=== PATIENT | female | born 1965 | race Caucasian/White ===

== ENCOUNTER 2017-10-15 17:21 | Emergency (ER) | payer OTHER ==
[~2017-10-15] VITALS: Ht 165.1 cm; Wt 108.9 kg
[~2017-10-15 17:21] MED LIST: ADAL40PEN; ADAL40PEN INJ; ALBU90OI INH; ALPR.25 PO; ALPR.5 PO; ALPR1 PO; AMOCLA875 PO; Adipex-P37.5 MG PO; Bentyl20 MG PO; CEPH500 PO; CLIN300 PO; CODBUTASA PO; CRUTCH3 USE; CYAN100 PO; CYCL10 PO; Coumadin7.5 MG PO; Cyclobenzaprine5 MG PO; DAYQUIL; DICY20 PO; DIPATR PO; DIPH50; DIPH50 PO; DOXY100 PO; ENOX30I SC; Flomax0.4 MG PO; HUMIRA10 MG/0.2 IM; HYDACE10B PO; HYDACE5 PO; HYDACE7.5 PO; HYDGUAL120 PO; HYDMOR2 PO; HYDR-86 PO; INSLIS75I SC; KETO10 PO; LORA1 PO; Lasix40 MG PO; MESA250ER; MESA250ER PO; META800 PO; METO100ER PO; METO50ER; METPRE4DP PO; METR500 PO; Methotrexate2.5 MG PO; NEBI10 PO; Nitrofurantoin50 MG PO; Norco 5-325 Ta1 EACH PO; OLAN7.5 PO; OLME20 PO; ONDA8ODT MM; OXYACE5T PO; PENVK500 PO; POTCHL20ER PO; PRED20 PO; PREDNISONE; PROC25S PR; PROM25; PROM25 PO; PROM25S PR; Percocet 5-3251 EACH PO; Phenergan25 MG PR; Prednisone20 MG PO; RANI150 PO; RXHYDACE PO; RXOXYACE PO; SERT100; SUMA25 PO; TOPI25 PO; TRAZ100; TRAZ100 PO; TRAZ150T57; TRAZ50 PO; WARF5; WARF5 PO; WARF7.5 PO; XARELTO10 MG PO; [UNRECOGNIZED DRUG - CODE] PO; [UNRECOGNIZED DRUG - OTHER]
[2017-10-15 18:03] LABS: BASOPHILS ABSOLUTE AUTO 0.02 K/mm3 (0.00-0.23); BASOPHILS PERCENT AUTO 0 % (0-2); EOSINOPHILS ABSOLUTE AUTO 0.11 K/mm3 (0.00-0.68); EOSINOPHILS PERCENT AUTO 1 % (0-6); Hematocrit 38.1 % (33.0-51.0); IMMATURE GRAN ABSOLUTE AUTO 0.05 K/mm3 (0.00-0.10); IMMATURE GRAN PERCENT AUTO 1 % (0-1); LYMPHOCYTES ABSOLUTE AUTO 2.43 K/mm3 (0.84-5.20); LYMPHOCYTES PERCENT AUTO 26 % (21-46); MONOCYTES ABSOLUTE AUTO 0.77 K/mm3 (0.16-1.47); MONOCYTES PERCENT AUTO 8 % (4-13); Mean Corpuscular HGB 30.1 pg (26.0-34.0); Mean Corpuscular HGB Conc 34.1 g/dL (31.5-36.5); Mean Corpuscular Volume 88 fL (80-100); Mean Platelet Volume 11.2 fL (9.1-12.4); NEUTROPHILS ABSOLUTE AUTO 5.93 K/mm3 (1.96-9.15); NEUTROPHILS PERCENT AUTO 64 % (41-73); Platelet Count 182 K/mm3 (150-400); RDW Coefficient Variation 13.2 % (11.7-14.2); RDW Standard Deviation 42.5 fL (35.1-46.3); Red Blood Cell Count 4.32 M/mm3 (3.80-5.20); White Blood Cell Count 9.31 K/mm3 (4.00-11.30)
[2017-10-15 18:22] LABS: Alanine Aminotransfer (ALT/SGP 59 U/L (12-78); Albumin, Blood 3.5 g/dL (3.4-5.0); Albumin/Globulin Ratio 0.9 (0.8-1.8); Alk Phos 66 U/L (50-136); Anion Gap 10 mmol/L (6-16); Aspartate Aminotrans (AST/SGOT 42 U/L (12-37); Bilirubin, Total 0.5 mg/dL (0.1-1.0); Blood Urea Nitrogen 14 mg/dL (8-24); Bun/Creatinine Ratio 16.4 (12.0-20.0); CO2, Blood 25 mmol/L (21-32); Calcium, Blood 9.2 mg/dL (8.5-10.1); Chloride, Blood 104 mmol/L (98-108); Creatinine, Blood 0.86 mg/dL (0.40-1.00); Glomerular Filtration Rate >60 (60-); Glucose, Blood 116 mg/dL (70-99); Potassium, Blood 3.6 mmol/L (3.5-5.5); Sodium, Blood 139 mmol/L (136-145); Total Protein, Blood 7.5 g/dL (6.4-8.2); Troponin I <0.015 ng/mL (0.000-0.040)
[2017-10-15] MEDS ORDERED: TRAM50 PO (19:17)
== END 2017-10-15 21:03 | disposition home or self-care (01) ==
LOC: ER 17:21
PROVIDERS: Physician Assistant
DX: M25.512 Pain in left shoulder (principal); R68.84 Jaw pain; Z88.6 Allergy status to analgesic agent; Z88.8 Allergy status to other drugs, medicaments and biological substances; Z79.899 Other long term (current) drug therapy; Z79.2 Long term (current) use of antibiotics; I10 Essential (primary) hypertension
CPT/HCPCS: 36415; 71046; 80053; 84484; 85025; 93005; 93010; 99283

== ENCOUNTER → 2018-04-08 | Outpatient (CLI) | payer OTHER ==
[~2018-04-08] MED LIST changes: +TRAM50 PO
== END ==
LOC: LAB 10:20 → LAB SHORT 10:20
DX: R30.0 Dysuria (principal)
CPT/HCPCS: 87086

== ENCOUNTER → 2018-04-13 | Outpatient (CLI) | payer OTHER | LOC: LAB SHORT 17:09 → LAB 17:09 | DX: R31.9 Hematuria, unspecified (principal) | CPT/HCPCS: 87086 ==

== ENCOUNTER 2018-10-15 10:25 | Emergency (ER) | payer OTHER ==
[~2018-10-15] VITALS: Ht 165.1 cm; Wt 102.1 kg
[2018-10-15] MEDS ORDERED: PRED10 PO (11:52)
[2018-10-15] MEDS ORDERED: VICODIN 5-3001 EACH PO (11:52)
== END 2018-10-15 12:08 | disposition home or self-care (01) ==
LOC: ER 10:25
DX: M25.561 Pain in right knee (principal); Z88.6 Allergy status to analgesic agent; Z88.8 Allergy status to other drugs, medicaments and biological substances; Z79.899 Other long term (current) drug therapy; I10 Essential (primary) hypertension
CPT/HCPCS: 73564; 99283-25

== ENCOUNTER 2018-11-10 11:52 | Emergency (ER) | payer OTHER ==
[~2018-11-10] VITALS: Ht 165.1 cm; Wt 99.8 kg
[~2018-11-10 11:52] MED LIST changes: +PRED10 PO; -TRAZ150T57; +TRAZ150T57 PO; +VICODIN 5-3001 EACH PO; -XARELTO10 MG PO; +XARELTO15 MG PO
[2018-11-10 13:16] LABS: BASOPHILS ABSOLUTE AUTO 0.03 K/mm3 (0.00-0.23); BASOPHILS PERCENT AUTO 0 % (0-2); EOSINOPHILS PERCENT AUTO 1 % (0-6); Hematocrit 39.9 % (33.0-51.0); Hemoglobin 13.4 g/dL (11.5-16.0); IMMATURE GRAN ABSOLUTE AUTO 0.03 K/mm3 (0.00-0.10); IMMATURE GRAN PERCENT AUTO 0 % (0-1); LYMPHOCYTES ABSOLUTE AUTO 2.08 K/mm3 (0.84-5.20); LYMPHOCYTES PERCENT AUTO 23 % (21-46); MONOCYTES ABSOLUTE AUTO 0.65 K/mm3 (0.16-1.47); MONOCYTES PERCENT AUTO 7 % (4-13); Mean Corpuscular HGB 30.7 pg (26.0-34.0); Mean Corpuscular HGB Conc 33.6 g/dL (31.5-36.5); Mean Corpuscular Volume 92 fL (80-100); Mean Platelet Volume 11.1 fL (9.1-12.4); NEUTROPHILS ABSOLUTE AUTO 6.28 K/mm3 (1.96-9.15); NEUTROPHILS PERCENT AUTO 69 % (41-73); Platelet Count 209 K/mm3 (150-400); RDW Coefficient Variation 13.3 % (11.7-14.2); RDW Standard Deviation 44.2 fL (35.1-46.3); Red Blood Cell Count 4.36 M/mm3 (3.80-5.20); White Blood Cell Count 9.17 K/mm3 (4.00-11.30)
[2018-11-10 13:28] LABS: Alanine Aminotransfer (ALT/SGP 73 U/L (12-78); Albumin, Blood 3.7 g/dL (3.4-5.0); Albumin/Globulin Ratio 0.9 (0.8-1.8); Alk Phos 78 U/L (50-136); Anion Gap 6 mmol/L (6-16); Aspartate Aminotrans (AST/SGOT 39 U/L (12-37); Bilirubin, Total 0.4 mg/dL (0.1-1.0); Blood Urea Nitrogen 10 mg/dL (8-24); Bun/Creatinine Ratio 14.3 (12.0-20.0); CO2, Blood 26 mmol/L (21-32); Calcium, Blood 9.9 mg/dL (8.5-10.1); Chloride, Blood 109 mmol/L (98-108); Glomerular Filtration Rate >60 (60-); Glucose, Blood 87 mg/dL (70-99); Potassium, Blood 3.5 mmol/L (3.5-5.5); Sodium, Blood 141 mmol/L (136-145); Total Protein, Blood 7.7 g/dL (6.4-8.2)
[2018-11-10] MEDS ORDERED: Norco 5-325 Ta1 EACH (13:45)
[2018-11-10] MEDS ORDERED: PRED10 PO (14:59)
[2018-11-10] MEDS ORDERED: Norco 5-325 Ta1 EACH PO (14:59)
[2018-11-10] MEDS ORDERED: PROM25S PR (14:59)
== END 2018-11-10 15:33 | disposition home or self-care (01) ==
LOC: ER 11:52
PROVIDERS: Physician Assistant
DX: K50.90 Crohn's disease, unspecified, without complications (principal); F41.9 Anxiety disorder, unspecified; F32.9 Major depressive disorder, single episode, unspecified; I10 Essential (primary) hypertension; M79.7 Fibromyalgia; Z87.442 Personal history of urinary calculi; Z79.899 Other long term (current) drug therapy
CPT/HCPCS: 36415; 74177; 80053; 83690; 85025; 96372-59; 96374-59; 99284-25; J1170; J2405; J2930; Q9967

== ENCOUNTER 2019-07-18 07:41 | Emergency (ER) | payer OTHER ==
[~2019-07-18] VITALS: Ht 165.1 cm; Wt 104.3 kg
[~2019-07-18 07:41] MED LIST changes: +Norco 5-325 Ta1 EACH
[2019-07-18 08:26] LABS: Source, Urine Clean Catch
[2019-07-18 08:30] LABS: Blood, Urine 2+ (Neg); Glucose Qualitative, Urine Neg (Neg); Ketones, Urine 2+ (Neg); Leukocyte Esterase, Urine 2+ (Neg); Nitrite, Urine Neg (Neg); Protein, Urine 2+ (Neg); Specific Gravity, Urine 1.015 (1.003-1.022); Urobilinogen, Urine 1+ (Normal)
[2019-07-18 08:31] LABS: BASOPHILS ABSOLUTE AUTO 0.03 K/mm3 (0.00-0.23); BASOPHILS PERCENT AUTO 0 % (0-2); EOSINOPHILS PERCENT AUTO 1 % (0-6); Hematocrit 42.1 % (33.0-51.0); Hemoglobin 14.5 g/dL (11.5-16.0); IMMATURE GRAN ABSOLUTE AUTO 0.06 K/mm3 (0.00-0.10); IMMATURE GRAN PERCENT AUTO 0 % (0-1); LYMPHOCYTES ABSOLUTE AUTO 1.52 K/mm3 (0.84-5.20); LYMPHOCYTES PERCENT AUTO 11 % (21-46); MONOCYTES ABSOLUTE AUTO 0.92 K/mm3 (0.16-1.47); MONOCYTES PERCENT AUTO 7 % (4-13); Mean Corpuscular HGB 31.5 pg (26.0-34.0); Mean Corpuscular HGB Conc 34.4 g/dL (31.5-36.5); Mean Corpuscular Volume 92 fL (80-100); Mean Platelet Volume 11.6 fL (9.1-12.4); NEUTROPHILS ABSOLUTE AUTO 10.81 K/mm3 (1.96-9.15); NEUTROPHILS PERCENT AUTO 81 % (41-73); Platelet Count 212 K/mm3 (150-400); RDW Coefficient Variation 13.2 % (11.7-14.2); RDW Standard Deviation 43.3 fL (35.1-46.3); White Blood Cell Count 13.44 K/mm3 (4.00-11.30)
[2019-07-18 08:35] LABS: Appearance, Urine Hazy (Clear); Bilirubin, Urine 1+ (Neg); Color, Urine Amber (P-Yellow)
[2019-07-18 08:38] LABS: Bacteria Mod /hpf; Squamous Epithelial Cells Few /hpf (Few)
[2019-07-18 08:39] LABS: Mucus Mod (0-Heavy)
[2019-07-18] MEDS ORDERED: Sulfamethoxazo1 EAC4 PO (08:44)
[2019-07-18] MEDS ORDERED: metoprolol succinate (08:45)
[2019-07-18] MEDS ORDERED: METR500 PO (08:45)
[2019-07-18] MEDS ORDERED: VALACYCLOVIR1000 MG PO (08:45)
[2019-07-18] MEDS ORDERED: FOLI1 PO (08:45)
[2019-07-18] MEDS ORDERED: STELARA90 MG/1 ML SQ (08:45)
[2019-07-18] MEDS ORDERED: METTREX2.5 PO (08:45)
[2019-07-18 08:47] LABS: Alanine Aminotransfer (ALT/SGP 58 U/L (12-78); Albumin, Blood 3.5 g/dL (3.4-5.0); Albumin/Globulin Ratio 0.9 (0.8-1.8); Alk Phos 71 U/L (50-136); Anion Gap 8 mmol/L (6-16); Aspartate Aminotrans (AST/SGOT 26 U/L (12-37); Bilirubin, Total 0.7 mg/dL (0.1-1.0); Blood Urea Nitrogen 6 mg/dL (8-24); Bun/Creatinine Ratio 8.6 (12.0-20.0); CO2, Blood 24 mmol/L (21-32); Calcium, Blood 9.3 mg/dL (8.5-10.1); Chloride, Blood 109 mmol/L (98-108); Globulin, Blood 4.1 g/dL (2.2-4.0); Glomerular Filtration Rate >60 (60-); Glucose, Blood 136 mg/dL (70-99); Potassium, Blood 3.1 mmol/L (3.5-5.5); Sodium, Blood 141 mmol/L (136-145); Total Protein, Blood 7.6 g/dL (6.4-8.2)
[2019-07-18] MEDS ORDERED: ONDA4ODT MM (10:15)
[2019-07-18] MEDS ORDERED: PROM25S PR (10:15)
== END 2019-07-18 10:33 | disposition home or self-care (01) ==
LOC: ER 07:41
PROVIDERS: Emergency Medicine
DX: K85.90 Acute pancreatitis without necrosis or infection, unspecified (principal); E87.6 Hypokalemia; D72.829 Elevated white blood cell count, unspecified; I10 Essential (primary) hypertension; Z88.6 Allergy status to analgesic agent; Z91.011 Allergy to milk products; Z88.8 Allergy status to other drugs, medicaments and biological substances; Z79.899 Other long term (current) drug therapy
CPT/HCPCS: 36415; 80053; 81001; 83690; 83735; 85025; 87086; 93005; 93010; 96365; 96375; 99283-25; J0696; J0780; J1200; J2405; J7030

== ENCOUNTER 2019-07-29 03:51 | Inpatient (IN) | payer OTHER ==
[~2019-07-29] VITALS: Ht 165.1 cm; Wt 104.3 kg
[~2019-07-29 03:51] MED LIST changes: +FOLI1 PO; +METTREX2.5 PO; +ONDA4ODT MM; +STELARA90 MG/1 ML SQ; +Sulfamethoxazo1 EAC4 PO; +VALACYCLOVIR1000 MG PO; +metoprolol succinate
[2019-07-29] MEDS ORDERED: METO50ER PO (04:14)
[2019-07-29 04:43] LABS: BASOPHILS ABSOLUTE AUTO 0.02 K/mm3 (0.00-0.23); BASOPHILS PERCENT AUTO 0 % (0-2); EOSINOPHILS ABSOLUTE AUTO 0.01 K/mm3 (0.00-0.68); EOSINOPHILS PERCENT AUTO 0 % (0-6); Hematocrit 40.2 % (33.0-51.0); Hemoglobin 13.6 g/dL (11.5-16.0); IMMATURE GRAN ABSOLUTE AUTO 0.03 K/mm3 (0.00-0.10); IMMATURE GRAN PERCENT AUTO 0 % (0-1); LYMPHOCYTES ABSOLUTE AUTO 0.88 K/mm3 (0.84-5.20); LYMPHOCYTES PERCENT AUTO 9 % (21-46); MONOCYTES ABSOLUTE AUTO 0.27 K/mm3 (0.16-1.47); MONOCYTES PERCENT AUTO 3 % (4-13); Mean Corpuscular HGB 31.1 pg (26.0-34.0); Mean Corpuscular HGB Conc 33.8 g/dL (31.5-36.5); Mean Corpuscular Volume 92 fL (80-100); Mean Platelet Volume 11.4 fL (9.1-12.4); NEUTROPHILS ABSOLUTE AUTO 9.15 K/mm3 (1.96-9.15); NEUTROPHILS PERCENT AUTO 88 % (41-73); Platelet Count 239 K/mm3 (150-400); RDW Coefficient Variation 12.7 % (11.7-14.2); RDW Standard Deviation 42.8 fL (35.1-46.3); Red Blood Cell Count 4.38 M/mm3 (3.80-5.20); White Blood Cell Count 10.36 K/mm3 (4.00-11.30)
[2019-07-29 05:01] LABS: Alanine Aminotransfer (ALT/SGP 38 U/L (12-78); Albumin, Blood 3.2 g/dL (3.4-5.0); Albumin/Globulin Ratio 0.8 (0.8-1.8); Alk Phos 64 U/L (50-136); Anion Gap 10 mmol/L (6-16); Aspartate Aminotrans (AST/SGOT 27 U/L (12-37); Bilirubin, Total 0.4 mg/dL (0.1-1.0); Blood Urea Nitrogen 13 mg/dL (8-24); CO2, Blood 22 mmol/L (21-32); Calcium, Blood 9.4 mg/dL (8.5-10.1); Chloride, Blood 108 mmol/L (98-108); Creatinine, Blood 0.72 mg/dL (0.40-1.00); Globulin, Blood 3.9 g/dL (2.2-4.0); Glomerular Filtration Rate >60 (60-); Glucose, Blood 161 mg/dL (70-99); Potassium, Blood 3.6 mmol/L (3.5-5.5); Sodium, Blood 140 mmol/L (136-145); Total Protein, Blood 7.1 g/dL (6.4-8.2)
[2019-07-29 06:56] LABS: Source, Urine Clean Catch
[2019-07-29 07:02] LABS: Appearance, Urine Clear (Clear); Bilirubin, Urine Neg (Neg); Blood, Urine 1+ (Neg); Color, Urine Yellow (P-Yellow); Glucose Qualitative, Urine Neg (Neg); Ketones, Urine 3+ (Neg); Leukocyte Esterase, Urine Neg (Neg); Nitrite, Urine Neg (Neg); Protein, Urine Neg (Neg); Specific Gravity, Urine 1.015 (1.003-1.022); Urobilinogen, Urine NORM (Normal); pH, Urine 6.5 (5.0-8.0)
[2019-07-29 07:09] LABS: Bacteria Not Seen /hpf; Red Blood Cells, Urine 0-2 /hpf (0-2); Squamous Epithelial Cells Few /hpf (Few); White Blood Cells, Urine Not Seen /hpf (0-5)
[2019-07-29 07:10] LABS: Mucus Light (0-Heavy)
--- NOTE | 2019-07-29 08:58 | NUR ---
PT ARRIVED TO UNIT AT APROX 0858 VIA GURNEY. PT INDEPENDENTLY AMBULATED TO BED. RATES ABDOMINAL PAIN 5/10 BUT STATES TOLERABLE AT THIS TIME.
--- NOTE | 2019-07-29 12:30 | NUR ---
RN IN ROOM FOR POWERGLIDE ATTEMPT PRIOR TO STARTING HEP GTT INFUSION.
--- NOTE | 2019-07-29 13:30 | NUR ---
ORDER FOR GI CONSULT. PAGER CALLED AT APPROX 1115 AND 1230. WAITING FOR CALL BACK.
--- NOTE | 2019-07-29 14:00 | NUR ---
DR. CASTELLANO IN TO SEE PT.
--- NOTE | 2019-07-29 18:26 | NUR ---
SHIFT SUMMARY: PT NAUSEATED AND PAINFUL THROUGHOUT SHIFT. EMESIS X1. MEDICATED WITH 1MG DILAUDID, PHENERGAN AND ZOFRAN. BP ELEVATED T/O SHIFT. ALL OTHER VS WNL. HEP GTT INFUSING WITH FLUIDS AT 100ML/HR. PT ADVANCED TO CLEAR LIQ DIET THIS EVENING. MINIMAL PO INTAKE. SBA TO BATHROOM. VOIDING. PT DENIES PASSING GAS. LAST BM THIS MORNING. NEW ORDER FOR PROTONIX AND PREDNISONE PER GI
--- NOTE | 2019-07-30 05:09 | NUR ---
SHIFT SUMMARY: MATEO HAS RESTED INTERMITTENTLY THROUGHOUT THE SHIFT. SHE REPORTS ADEQUATE PAIN CONTROL WITH 1 MG OF DILAUDID. SHE STATES THAT THE PHENERGAN 25 MG IS CONTROLLING HER NAUSEA. SHE REPORTS THAT SHE HAS STARTED HAVING BOWEL MOVEMENTS AGAIN AND PASSING GAS, WHICH HAS HELPED WITH SOME OF HER ABDOMINAL PAIN, BUT THAT THE EPIGASTRIC PAIN WHICH IS RADIATING TO HER BACK HAS NOT IMPROVED. SHE IS TOLERATING ICE CHIPS AND SOME SMALL SIPS OF CLEAR LIQUIDS. SHE IS AMBULATING TO THE BATHROOM AND URINATING WITHOUT DIFFICULTY. SHE IS ABLE TO MAKE HER NEEDS KNOWN. SHE IS LYING SUPINE IN BED WITH HER CALL LIGHT IN REACH.
--- NOTE | 2019-07-30 07:20 | NUR ---
PT AWAKE OOB TO BATHROOM THEN JER INTO BED PASSED SOME STOOL LAST NIGHT NO FLATUS PT HAVING NAUSEA NO EMESIS
--- NOTE | 2019-07-30 08:30 | NUR ---
MEDS GIVEN SCHED PT [facility] [facility] AMT
--- NOTE | 2019-07-30 09:30 | NUR ---
PT REMOVED OUT OF ISO NO CDIFF
--- NOTE | 2019-07-30 10:00 | NUR ---
PT REQ PAIN MEDS DILAUDID GIVEN
[2019-07-30 10:48] LABS: Adenovirus F 40/41 Not Detected (NOT DETECT); Astrovirus Not Detected (NOT DETECT); Campylobacter Sp Not Detected (NOT DETECT); Cryptosporidium Not Detected (NOT DETECT); Cyclospora Cayetanensis Not Detected (NOT DETECT); E. Coli O157 Not Detected (NOT DETECT); Entamoeba Histolytica Not Detected (NOT DETECT); Enteroaggregative E. coli-EAEC Not Detected (NOT DETECT); Enteropathogenic E. coli-EPEC Not Detected (NOT DETECT); Enterotoxigenic E. coli-ETEC Not Detected (NOT DETECT); Giardia Lamblia Not Detected (NOT DETECT); Norovirus GI/GII Not Detected (NOT DETECT); Plesiomonas Shigelloides Not Detected (NOT DETECT); Salmonella Sp Not Detected (NOT DETECT); Shiga Toxin-prod E. coli-STEC Not Detected (NOT DETECT); Shigella/Enteroin E. coli-EIEC Not Detected (NOT DETECT); Vibrio Cholerae Not Detected (NOT DETECT); Vibrio Sp Not Detected (NOT DETECT); Yersinia Enterocolitica Not Detected (NOT DETECT)
[2019-07-30 10:49] LABS: Rotavirus A Not Detected (NOT DETECT); Sapovirus Not Detected (NOT DETECT)
--- NOTE | 2019-07-30 13:30 | NUR ---
DR AGUIRRE BY TO SEE PT SHE IS HAVING SEVERE H/A ALONG WITH HER INC B/P
--- NOTE | 2019-07-30 14:40 | NUR ---
INCREASED HEPARIN GTT TO 30.4 PER PHARMACY
--- NOTE | 2019-07-30 14:53 | NUR ---
DR ARTEAGA BY TO SEE PT
--- NOTE | 2019-07-30 18:53 | NUR ---
DR MOON BY TO SEE PT PLAN FOR UPPER ENDO IN AM NPO AFTER MN
[2019-07-31 04:27] LABS: BASOPHILS ABSOLUTE AUTO 0.02 K/mm3 (0.00-0.23); BASOPHILS PERCENT AUTO 0 % (0-2); EOSINOPHILS ABSOLUTE AUTO 0.04 K/mm3 (0.00-0.68); EOSINOPHILS PERCENT AUTO 0 % (0-6); Hematocrit 37.1 % (33.0-51.0); Hemoglobin 12.6 g/dL (11.5-16.0); IMMATURE GRAN ABSOLUTE AUTO 0.05 K/mm3 (0.00-0.10); IMMATURE GRAN PERCENT AUTO 1 % (0-1); LYMPHOCYTES ABSOLUTE AUTO 1.43 K/mm3 (0.84-5.20); LYMPHOCYTES PERCENT AUTO 14 % (21-46); MONOCYTES ABSOLUTE AUTO 1.16 K/mm3 (0.16-1.47); MONOCYTES PERCENT AUTO 11 % (4-13); Mean Corpuscular Volume 91 fL (80-100); Mean Platelet Volume 11.4 fL (9.1-12.4); NEUTROPHILS ABSOLUTE AUTO 7.89 K/mm3 (1.96-9.15); NEUTROPHILS PERCENT AUTO 74 % (41-73); Platelet Count 209 K/mm3 (150-400); Red Blood Cell Count 4.07 M/mm3 (3.80-5.20); White Blood Cell Count 10.59 K/mm3 (4.00-11.30)
[2019-07-31 04:40] LABS: Albumin, Blood 2.9 g/dL (3.4-5.0); Anion Gap 9 mmol/L (6-16); Blood Urea Nitrogen 4 mg/dL (8-24); Bun/Creatinine Ratio 6.2 (12.0-20.0); CO2, Blood 25 mmol/L (21-32); Calcium, Blood 9.2 mg/dL (8.5-10.1); Chloride, Blood 108 mmol/L (98-108); Creatinine, Blood 0.65 mg/dL (0.40-1.00); Glomerular Filtration Rate >60 (60-); Glucose, Blood 128 mg/dL (70-99); Phosphorus, Blood 3.9 mg/dL (2.5-4.9); Potassium, Blood 2.6 mmol/L (3.5-5.5); Sodium, Blood 142 mmol/L (136-145)
--- NOTE | 2019-07-31 07:04 | NUR ---
SUMMARY CALL TO DR MACIAS REGARDING PAIN MEDS,HEP GTT PRE EGD FOR THIS AM WELL DISCUSSED HTN. NOT WANTING TO CHANGE ORDERS REGARDING HTN. OTHER ORDERS RECEIVED.HEP GTT TO BE DCD. ALSO CALLED REGARDING POTASSIUM 2.6 THIS AM. ORDERS RECEIVED FOR K RIDER 60 MEQ TOTAL.RUNNING PER R ARM POWER GLIDE OBTAINED LAST NIGHT FOR ALL MEDS OTHER THAN HEPARIN GTT WHICH IS RUNNING IN LUE PER POWER GLIDE.AFTER STARTING IV k @ 50 ML PER HR PT CALLED TEARFUL STATING SHARP PAIN RUNNING UP R ARM. POINTS TO IV SITE AND TRAILING PATH INTO R SHOULDER AREA.INCREASED HEART RATE NOTED DUE TO PT C/O "ANXIETY" STATES MOTHER OF "HEART ATTACK" PT HAS GOOD BLOOD RETURN TO SITE. I STOPPED K FOR 5 MIN FLUSHED WITH 20 ML NS,THEN SLOWED RATE TO 30 ML PER HR.PER BRITTNEY EMD TEACHER, PT HAS HAD NOT CHANGES IN RHYTHMN. CONTINUES SINUS TACH, BUT NOTED INCREASED RATE WHICH IS SLOWING PT CALMED WITH REASSSURANCE. PT THEN C/O MILD CHEST PRESSURE.I STOPPED POTASSIUM AND PT REPORTED CHEST PRESSURE RESOLVING ,BUT STILL C/O SOME PAIN TO R SHOULDER. SEE VS RECORDED. I PLACED CALL OUT TO DR WISEMAN TO NOTIFY AND REQUEST NS@ TKO WITH K RIDER TO DILUTE.SCHEDULED TO STOP HEPARIN GTT AT 0700, HOWEVER WAITING TO CONFIRM WITH HOSPITALIST.K RATE DOWN TO 30 ML PER HR.NO RETURNED CALVIN YET.PLACED K RIDER ON STANDBY AT THIS TIME. CALLED OUT TO HOSPITALIST AGAIN AT 0715.
--- NOTE | 2019-07-31 08:26 | NUR ---
DR SALAZAR IN TO SEE PT.
--- NOTE | 2019-07-31 10:24 | NUR ---
07/31/19 Navdeep Malloy History, Chart, Medications and Allergies reviewed before start of procedure.MONITOR INTACT WITH CONTINUOUS PULSE OXIMETRY AND INTERMITTENT BP.3-LEAD EKG REVIEWED WITH PHYSICIAN PRIOR TO START OF PROCEDURE.O2 VIA N/C INTACT THROUGHOUT SEDATION/PROCEDURE. Patient confirms NPO status and agrees with scheduled surgery.PATIENT DETERMINED TO BE ASA APPROPRIATE FOR PROPOFOL SEDATION PRIOR TO START OF PROCEDURE BY DR. LINK.
--- NOTE | 2019-07-31 10:25 | NUR ---
pt to procedure
--- NOTE | 2019-07-31 17:46 | NUR ---
SUMMARY PT HAD ENDOSCOPY TODAY. DR CASTELLANO IN THIS EVENING AND GAVE VERBAL ORDER TO ADVANCE DIET TOLERATED. MEDICATED THROUGH SHIFT PER ORDERS FOR TRUONG PAIN. PT REPORTED AFTER REC'D TORADOL AND SLEPT, TRUONG HAS RESOLVED. MEDICATED THIS EVENING PER ORDERS FOR ABDOMINAL PAIN. MEDICATED T/O SHIFT PER ORDERS FOR HTN. CALL LIGHT IN REACH.
[2019-08-01 05:23] LABS: Anion Gap 8 mmol/L (6-16); Blood Urea Nitrogen 6 mg/dL (8-24); CO2, Blood 24 mmol/L (21-32); Chloride, Blood 110 mmol/L (98-108); Creatinine, Blood 0.66 mg/dL (0.40-1.00); Glomerular Filtration Rate >60 (60-); Glucose, Blood 127 mg/dL (70-99); Sodium, Blood 142 mmol/L (136-145)
--- NOTE | 2019-08-01 08:06 | NUR ---
SUMMARY PT REPORTS SLEPT WELL. BP IMPROVING
[2019-08-01] MEDS ORDERED: Esgic Tablet1 EACH PO (11:16)
[2019-08-01] MEDS ORDERED: PRED20 PO (11:18)
[2019-08-01] MEDS ORDERED: Carafate1 GM/10 ML PO (11:20)
[2019-08-01] MEDS ORDERED: NEBI10 PO (11:21)
[2019-08-01] MEDS ORDERED: PANT20 PO (11:22)
[2019-08-01] MEDS ORDERED: K-Dur20 MEQ PO (11:23)
--- NOTE | 2019-08-01 14:14 | NUR ---
DISCHARGED FAXED PRESCRIPTIONS INTO [facility]. DC'D POWER GLIDES, CATHETERS INTACT. REMOVED TELE. REVIEWED DC PAPERWORK W/PT; VERBALIZED UNDERSTANDING. PT LEFT UNIT IN WC W/POSSESSIONS AND DC PAPERWORK IN HAND, ACCOMPANIED BY FAMILY AT 1233.
== END 2019-08-01 12:33 | disposition home or self-care (01) | DRG 388 ==
LOC: ER 03:51 → SURS 03:52
PROVIDERS: Emergency Medicine; Internal Medicine; Student in an Organized Health Care Education/Training Program; ADMIT Family Medicine
PROC: 0DJ08ZZ Inspection of Upper Intestinal Tract, Via Natural or Artificial Opening Endoscopic (ICD-10-PCS; principal; 2019-07-31 10:00)
DX: K56.609 Unspecified intestinal obstruction, unspecified as to partial versus complete obstruction (principal); K85.90 Acute pancreatitis without necrosis or infection, unspecified; D68.2 Hereditary deficiency of other clotting factors; K50.90 Crohn's disease, unspecified, without complications; I10 Essential (primary) hypertension; R51 Headache; Z86.718 Personal history of other venous thrombosis and embolism; M79.7 Fibromyalgia; M32.9 Systemic lupus erythematosus, unspecified; M06.9 Rheumatoid arthritis, unspecified; Z90.710 Acquired absence of both cervix and uterus; Z90.49 Acquired absence of other specified parts of digestive tract; K12.0 Recurrent oral aphthae
CPT/HCPCS: 0097U; 36415; 70450; 74176; 80048; 80053; 80069; 81001; 83690; 85025; 85651; 85730; 86141; 87338; 90686; 96361; 96374; 96375; 96376; 99285-25; C1751; C9113; G0378; J0360; J1170; J1644; J1885; J2250; J2405; J2550; J2704; J3480; J7030; J7120; J7512; Q0163

== ENCOUNTER → 2019-10-22 | Outpatient (CLI) | payer OTHER ==
[~2019-10-22] MED LIST changes: +Carafate1 GM/10 ML PO; +Esgic Tablet1 EACH PO; +K-Dur20 MEQ PO; +METO50ER PO; +PANT20 PO
== END ==
LOC: OLS 08:30 → LAB SHORT 08:30 → LAB FUT 10-14 11:15 → EDSTATUS 10-14 11:15
DX: M06.9 Rheumatoid arthritis, unspecified (principal); R19.7 Diarrhea, unspecified; K50.00 Crohn's disease of small intestine without complications
CPT/HCPCS: 83993

== ENCOUNTER 2019-11-30 06:01 | Day surgery (SDC) | payer OTHER ==
[~2019-11-30] VITALS: Ht 165.1 cm; Wt 105.1 kg
[~2019-11-30 06:01] MED LIST changes: +MELATONIN3 M1 PO; +TESSALON PERLE100 MG PO
--- NOTE | 2019-11-30 09:32 | NUR ---
Ambulatory in Day Surgery. Surgical site prepped with 2% Chlorhexidine cloth wipe. History, Chart, Medications and Allergies reviewed before start of procedure.Lungs clear T/O to Auscultation. Patient confirms NPO status and agrees with scheduled surgery. Pre-Op teaching done. Pt verbalizes understanding. Patient States Post-Procedure ride home has been arranged.
--- NOTE | 2019-11-30 10:14 | NUR ---
Patient up to Ambulate independently. Gait steady. Discharge instructions reviewed with patient. Patient verbalizes understanding. Copy given to patient to take home. Patient States Post-Procedure ride home has been arranged. Discharged via wheelchair to private car for ride home. PT GIVEN HARD RX WITH DISCHARGE FOLDER NO N/V PAIN 10/28 AFTER MEDICATED
== END 2019-11-30 22:44 | disposition home or self-care (01) ==
LOC: ORSCMMR 06:01 → ORD 07:30 → ORSCMMR 07:30
PROVIDERS: Orthopaedic Surgery
PROC: 0SBD4ZZ Excision of Left Knee Joint, Percutaneous Endoscopic Approach (ICD-10-PCS; principal; 2019-11-30 07:30)
DX: S83.232A Complex tear of medial meniscus, current injury, left knee, initial encounter (principal); I10 Essential (primary) hypertension; K21.9 Gastro-esophageal reflux disease without esophagitis; E66.01 Morbid (severe) obesity due to excess calories; Z68.38 Body mass index [BMI] 38.0-38.9, adult; Z79.899 Other long term (current) drug therapy; D68.51 Activated protein C resistance
CPT/HCPCS: J0171; J0690; J1100; J2250; J2405; J2704; J2765; J3010; J7120

== ENCOUNTER 2020-01-21 05:00 | Inpatient (IN) | payer OTHER ==
[~2020-01-21] VITALS: Ht 165.1 cm; Wt 98.0 kg
[2020-01-21 05:46] LABS: BASOPHILS ABSOLUTE AUTO 0.05 K/mm3 (0.00-0.23); BASOPHILS PERCENT AUTO 1 % (0-2); EOSINOPHILS ABSOLUTE AUTO 0.06 K/mm3 (0.00-0.68); EOSINOPHILS PERCENT AUTO 1 % (0-6); Hematocrit 43.9 % (33.0-51.0); Hemoglobin 14.7 g/dL (11.5-16.0); IMMATURE GRAN ABSOLUTE AUTO 0.03 K/mm3 (0.00-0.10); IMMATURE GRAN PERCENT AUTO 0 % (0-1); LYMPHOCYTES ABSOLUTE AUTO 1.98 K/mm3 (0.84-5.20); LYMPHOCYTES PERCENT AUTO 18 % (21-46); MONOCYTES ABSOLUTE AUTO 0.82 K/mm3 (0.16-1.47); MONOCYTES PERCENT AUTO 8 % (4-13); Mean Corpuscular HGB 29.3 pg (26.0-34.0); Mean Corpuscular HGB Conc 33.5 g/dL (31.5-36.5); Mean Corpuscular Volume 88 fL (80-100); Mean Platelet Volume 12.9 fL (9.1-12.4); NEUTROPHILS ABSOLUTE AUTO 7.83 K/mm3 (1.96-9.15); NEUTROPHILS PERCENT AUTO 73 % (41-73); Platelet Count 171 K/mm3 (150-400); RDW Coefficient Variation 13.2 % (11.7-14.2); RDW Standard Deviation 42.1 fL (35.1-46.3); Red Blood Cell Count 5.02 M/mm3 (3.80-5.20); White Blood Cell Count 10.77 K/mm3 (4.00-11.30)
[2020-01-21 06:21] LABS: Alanine Aminotransfer (ALT/SGP 45 U/L (12-78); Anion Gap 8 mmol/L (6-16); Aspartate Aminotrans (AST/SGOT 26 U/L (12-37); Blood Urea Nitrogen 15 mg/dL (8-24); CO2, Blood 25 mmol/L (21-32); Calcium, Blood 9.8 mg/dL (8.5-10.1); Chloride, Blood 106 mmol/L (98-108); Glucose, Blood 165 mg/dL (70-99); Potassium, Blood 3.4 mmol/L (3.5-5.5); Sodium, Blood 139 mmol/L (136-145)
[2020-01-21 06:24] LABS: Albumin/Globulin Ratio 1.1 (0.8-1.8); Alk Phos 74 U/L (50-136); Bilirubin, Total 0.7 mg/dL (0.1-1.0); Bun/Creatinine Ratio 18.6 (12.0-20.0); Creatinine, Blood 0.81 mg/dL (0.40-1.00); Globulin, Blood 3.7 g/dL (2.2-4.0); Glomerular Filtration Rate >60 (60-); Total Protein, Blood 7.7 g/dL (6.4-8.2)
[2020-01-21 06:26] LABS: Troponin I <0.015 ng/mL (0.000-0.040)
[2020-01-21] MEDS ORDERED: ALPR.5 PO (11:17)
[2020-01-21] MEDS ORDERED: BUDESONIDE EC3 MG PO (11:19)
[2020-01-21] MEDS ORDERED: BUTALB-ACETAMI1 EAC6 PO (11:22)
[2020-01-21] MEDS ORDERED: COLESTID1 G1 PO (11:24)
[2020-01-21] MEDS ORDERED: FOLI1 PO (11:26)
[2020-01-21] MEDS ORDERED: LEUC5 PO (12:09)
[2020-01-21] MEDS ORDERED: METTREX2.5 PO (12:10)
[2020-01-21] MEDS ORDERED: PANT20 PO (12:11)
[2020-01-21] MEDS ORDERED: METO50ER PO (12:11)
[2020-01-21] MEDS ORDERED: XARELTO15 MG PO (12:12)
[2020-01-21 12:41] LABS: International Normalized Ratio 1.03
--- NOTE | 2020-01-21 17:28 | NUR ---
Shift summary Patient admitted today for a SBO. Pain controlled with IV Dilaudid. Patient receiving IV P[place]nergan every 4 hours for nausea. Patient independent in the room. Patient NPO. Consult placed for general surgery. Call light within patient reach.
--- NOTE | 2020-01-22 05:15 | NUR ---
ASSUMED CARE OF PATIENT AT 1915. NO COMPLAINTS OF NAUSEA OR ABDOMINAL PAIN. HYPOACTIVE BOWEL SOUNDS NOTED. BLOOD PRESSURE ELEVATED, NEEDING IV LOPRESSOR SCHEDULED. PATIENT PUT ON TELEMETRY, NO OTHER BLOOD PRESSURE ISSUES SINCE LOPRESSOR ADMINISTRATION. VSS OTHERWISE, PATIENT EDUCATED ON NPO STATUS AND REQUESTS LORAZEPAM IV FOR SLEEP. PATIENT ALSO ON HEPARIN GTT FOR ANTICOAGULATION. CALL LIGHT WITHIN REACH, WILL CONTINUE TO MONITOR UNTIL END OF SHIFT.
[2020-01-22 06:30] LABS: BASOPHILS ABSOLUTE AUTO 0.01 K/mm3 (0.00-0.23); BASOPHILS PERCENT AUTO 0 % (0-2); EOSINOPHILS PERCENT AUTO 0 % (0-6); Hematocrit 39.6 % (33.0-51.0); Hemoglobin 13.5 g/dL (11.5-16.0); IMMATURE GRAN ABSOLUTE AUTO 0.04 K/mm3 (0.00-0.10); IMMATURE GRAN PERCENT AUTO 1 % (0-1); LYMPHOCYTES ABSOLUTE AUTO 0.84 K/mm3 (0.84-5.20); LYMPHOCYTES PERCENT AUTO 11 % (21-46); MONOCYTES ABSOLUTE AUTO 0.07 K/mm3 (0.16-1.47); MONOCYTES PERCENT AUTO 1 % (4-13); Mean Corpuscular HGB 29.7 pg (26.0-34.0); Mean Corpuscular HGB Conc 34.1 g/dL (31.5-36.5); Mean Corpuscular Volume 87 fL (80-100); Mean Platelet Volume 12.7 fL (9.1-12.4); NEUTROPHILS ABSOLUTE AUTO 7.07 K/mm3 (1.96-9.15); NEUTROPHILS PERCENT AUTO 88 % (41-73); Platelet Count 155 K/mm3 (150-400); RDW Standard Deviation 41.4 fL (35.1-46.3); Red Blood Cell Count 4.54 M/mm3 (3.80-5.20); White Blood Cell Count 8.03 K/mm3 (4.00-11.30)
[2020-01-22 06:55] LABS: Alanine Aminotransfer (ALT/SGP 37 U/L (12-78); Albumin, Blood 3.3 g/dL (3.4-5.0); Albumin/Globulin Ratio 0.9 (0.8-1.8); Alk Phos 63 U/L (50-136); Anion Gap 8 mmol/L (6-16); Aspartate Aminotrans (AST/SGOT 18 U/L (12-37); Bilirubin, Total 0.6 mg/dL (0.1-1.0); Blood Urea Nitrogen 7 mg/dL (8-24); Bun/Creatinine Ratio 10.4 (12.0-20.0); CO2, Blood 27 mmol/L (21-32); Chloride, Blood 105 mmol/L (98-108); Creatinine, Blood 0.67 mg/dL (0.40-1.00); Globulin, Blood 3.5 g/dL (2.2-4.0); Glomerular Filtration Rate >60 (60-); Glucose, Blood 147 mg/dL (70-99); Potassium, Blood 3.6 mmol/L (3.5-5.5); Sodium, Blood 140 mmol/L (136-145); Total Protein, Blood 6.8 g/dL (6.4-8.2)
--- NOTE | 2020-01-22 17:53 | NUR ---
SHIFT SUMMARY PT A&OX4, VSS, MULTIPLE BM'S THIS SHIFT. TOLERATING REG DIET; DENIES N&V. PAIN MANAGED WITH 0.5 MG DILAUDID. AMBULATING INDEPENDENTLY TO BRP/UP IN ROOM. PLAN FOR DC TOMORROW. WILL REPORT TO ONCOMING NOC RN.
--- NOTE | 2020-01-22 20:30 | NUR ---
2000 PT UP AMMBULATED THROUGHOUT HALLWAY WITH GAIT SLOW AND STEADY WITH ONE STANDBY ASSIST; DENIES NEED FOR PAIN OR NAUSEA; PASSING FLATUS.
--- NOTE | 2020-01-23 04:39 | NUR ---
SHIFT SUMMARY: 54 Y/O FEMALE RESTED COMFORTABLY ALL SHIFT IN BED; PT HAD NO BOWEL MOVEMENTS; PT C/O GENERALIZED ABD PAIN RATED 7/10 TWICE WITH DILAUDID 1MG IVP GIVEN WITH RELIEF FELT; PT PASSING FLATUS; DENIES NAUSEA; BED LOW POSITION WITH CALL LIGHT AT SIDE.
[2020-01-23 04:46] LABS: Anion Gap 5 mmol/L (6-16); Blood Urea Nitrogen 12 mg/dL (8-24); Bun/Creatinine Ratio 15.8 (12.0-20.0); CO2, Blood 30 mmol/L (21-32); Calcium, Blood 9.1 mg/dL (8.5-10.1); Chloride, Blood 105 mmol/L (98-108); Creatinine, Blood 0.76 mg/dL (0.40-1.00); Glomerular Filtration Rate >60 (60-); Glucose, Blood 125 mg/dL (70-99); Potassium, Blood 3.4 mmol/L (3.5-5.5); Sodium, Blood 140 mmol/L (136-145)
--- NOTE | 2020-01-23 18:33 | NUR ---
DISCHARGE SUMMARY PT A&OX4, VSS, WALKED OFF FLOOR WITH SISTER TO GO HOME WITH PERSONAL POSSESSIONS INCLUDING DC PACKET; DECLINED WC. PT HAD BEEN AMBULATORY IN HER ROOM, MULTIPLE BMS, TOLERATING PO. POWERGLIDE AND IV DC'D. DC INS PROVIDED; PT REP UNDERSTANDING THOSE INSTRUCTIONS.
== END 2020-01-23 13:52 | disposition home or self-care (01) | DRG 389 ==
LOC: ER 05:00 → SURS 05:01
PROVIDERS: Emergency Medicine; ADMIT Internal Medicine
DX: K56.609 Unspecified intestinal obstruction, unspecified as to partial versus complete obstruction (principal); D68.2 Hereditary deficiency of other clotting factors; K50.90 Crohn's disease, unspecified, without complications; E87.6 Hypokalemia; E66.01 Morbid (severe) obesity due to excess calories; I10 Essential (primary) hypertension; M06.9 Rheumatoid arthritis, unspecified; M79.7 Fibromyalgia; E86.0 Dehydration; M32.9 Systemic lupus erythematosus, unspecified; Z68.35 Body mass index [BMI] 35.0-35.9, adult; Z86.718 Personal history of other venous thrombosis and embolism; Z79.01 Long term (current) use of anticoagulants; Z88.6 Allergy status to analgesic agent
CPT/HCPCS: 36415; 74177; 80048; 80053; 83690; 84484; 85025; 85610; 85730; 93005; 93010; 96361; 96374-59; 96375; 96376; 99285-25; C9113; J0360; J0780; J1170; J1644; J2060; J2405; J2550; J2930; J3010; J7120; Q9967

== ENCOUNTER 2020-05-19 17:41 | Emergency (ER) | payer OTHER ==
[~2020-05-19] VITALS: Ht 165.1 cm; Wt 95.2 kg
[~2020-05-19 17:41] MED LIST changes: +BUDESONIDE EC3 MG PO; +BUTALB-ACETAMI1 EAC6 PO; +COLESTID1 G1 PO; +LEUC5 PO
[2020-05-19 19:09] LABS: BASOPHILS ABSOLUTE AUTO 0.03 K/mm3 (0.00-0.23); BASOPHILS PERCENT AUTO 0 % (0-2); EOSINOPHILS ABSOLUTE AUTO 0.14 K/mm3 (0.00-0.68); EOSINOPHILS PERCENT AUTO 2 % (0-6); Hematocrit 39.7 % (33.0-51.0); Hemoglobin 12.5 g/dL (11.5-16.0); IMMATURE GRAN ABSOLUTE AUTO 0.01 K/mm3 (0.00-0.10); IMMATURE GRAN PERCENT AUTO 0 % (0-1); LYMPHOCYTES ABSOLUTE AUTO 1.87 K/mm3 (0.84-5.20); LYMPHOCYTES PERCENT AUTO 25 % (21-46); MONOCYTES ABSOLUTE AUTO 0.69 K/mm3 (0.16-1.47); MONOCYTES PERCENT AUTO 9 % (4-13); Mean Corpuscular HGB 28.7 pg (26.0-34.0); Mean Corpuscular HGB Conc 31.5 g/dL (31.5-36.5); Mean Corpuscular Volume 91 fL (80-100); Mean Platelet Volume 12.3 fL (9.1-12.4); NEUTROPHILS ABSOLUTE AUTO 4.83 K/mm3 (1.96-9.15); NEUTROPHILS PERCENT AUTO 64 % (41-73); Platelet Count 169 K/mm3 (150-400); RDW Coefficient Variation 14.1 % (11.7-14.2); RDW Standard Deviation 47.1 fL (35.1-46.3); Red Blood Cell Count 4.35 M/mm3 (3.80-5.20); White Blood Cell Count 7.57 K/mm3 (4.00-11.30)
[2020-05-19 19:27] LABS: Alanine Aminotransfer (ALT/SGP 29 U/L (12-78); Albumin, Blood 3.5 g/dL (3.4-5.0); Alk Phos 86 U/L (50-136); Anion Gap 4 mmol/L (6-16); Aspartate Aminotrans (AST/SGOT 22 U/L (12-37); Bilirubin, Total 0.5 mg/dL (0.1-1.0); Blood Urea Nitrogen 14 mg/dL (8-24); CO2, Blood 28 mmol/L (21-32); CPK Creatine Kinase 90 U/L (26-193); Calcium, Blood 9.1 mg/dL (8.5-10.1); Chloride, Blood 110 mmol/L (98-108); Creatinine, Blood 0.87 mg/dL (0.40-1.00); Globulin, Blood 3.4 g/dL (2.2-4.0); Glomerular Filtration Rate >60 (60-); Glucose, Blood 98 mg/dL (70-99); Potassium, Blood 3.7 mmol/L (3.5-5.5); Sodium, Blood 142 mmol/L (136-145); Total Protein, Blood 6.9 g/dL (6.4-8.2)
== END 2020-05-19 20:20 | disposition home or self-care (01) ==
LOC: ER 17:41
PROVIDERS: Emergency Medicine
DX: S80.12XA Contusion of left lower leg, initial encounter (principal); Z79.899 Other long term (current) drug therapy; Z79.52 Long term (current) use of systemic steroids; Z79.01 Long term (current) use of anticoagulants; Z88.6 Allergy status to analgesic agent; Z88.8 Allergy status to other drugs, medicaments and biological substances; W19.XXXA Unspecified fall, initial encounter
CPT/HCPCS: 36415; 73590; 73630; 80053; 82550; 85025; 99284-25; A9270

== ENCOUNTER 2021-11-09 10:42 | Emergency (ER) | payer OTHER ==
[~2021-11-09] VITALS: Ht 165.1 cm; Wt 90.3 kg
[2021-11-09 11:44] LABS: BASOPHILS ABSOLUTE AUTO 0.03 K/mm3 (0.00-0.23); BASOPHILS PERCENT AUTO 0 % (0-2); EOSINOPHILS ABSOLUTE AUTO 0.03 K/mm3 (0.00-0.68); EOSINOPHILS PERCENT AUTO 0 % (0-6); Hematocrit 42.4 % (33.0-51.0); Hemoglobin 14.2 g/dL (11.5-16.0); IMMATURE GRAN ABSOLUTE AUTO 0.06 K/mm3 (0.00-0.10); IMMATURE GRAN PERCENT AUTO 0 % (0-1); LYMPHOCYTES ABSOLUTE AUTO 1.63 K/mm3 (0.84-5.20); LYMPHOCYTES PERCENT AUTO 11 % (21-46); MONOCYTES ABSOLUTE AUTO 1.67 K/mm3 (0.16-1.47); MONOCYTES PERCENT AUTO 11 % (4-13); Mean Corpuscular HGB Conc 33.5 g/dL (31.5-36.5); Mean Corpuscular Volume 90 fL (80-100); NEUTROPHILS ABSOLUTE AUTO 11.71 K/mm3 (1.96-9.15); NEUTROPHILS PERCENT AUTO 77 % (41-73); Platelet Count 111 K/mm3 (150-400); RDW Coefficient Variation 14.2 % (11.7-14.2); Red Blood Cell Count 4.73 M/mm3 (3.80-5.20); White Blood Cell Count 15.13 K/mm3 (4.00-11.30)
[2021-11-09 11:47] LABS: Mean Platelet Volume 13.4 fL (9.1-12.4)
[2021-11-09 11:59] LABS: Alanine Aminotransfer (ALT/SGP 44 U/L (12-78); Albumin, Blood 3.6 g/dL (3.4-5.0); Albumin/Globulin Ratio 0.9 (0.8-1.8); Alk Phos 78 U/L (50-136); Anion Gap 7 mmol/L (6-16); Aspartate Aminotrans (AST/SGOT 25 U/L (12-37); Bilirubin, Total 1.3 mg/dL (0.1-1.0); Blood Urea Nitrogen 8 mg/dL (8-24); CO2, Blood 27 mmol/L (21-32); Calcium, Blood 9.5 mg/dL (8.5-10.1); Chloride, Blood 102 mmol/L (98-108); Globulin, Blood 3.9 g/dL (2.2-4.0); Glomerular Filtration Rate >60 (60-); Glucose, Blood 94 mg/dL (70-99); Potassium, Blood 3.8 mmol/L (3.5-5.5); Sodium, Blood 136 mmol/L (136-145); Total Protein, Blood 7.5 g/dL (6.4-8.2)
[2021-11-09] MEDS ORDERED: HYDR1TAB94 PO (15:03)
[2021-11-09] MEDS ORDERED: ONDA4ODT MM (15:03)
[2021-11-09] MEDS ORDERED: AMOCLA875 PO (15:03)
[2021-11-09 16:05] LABS: Appearance, Urine Clear (Clear); Bilirubin, Urine Neg (Neg); Blood, Urine Neg (Neg); Color, Urine Yellow (P-Yellow); Glucose Qualitative, Urine Neg (Neg); Ketones, Urine 3+ (Neg); Leukocyte Esterase, Urine Neg (Neg); Nitrite, Urine Neg (Neg); Protein, Urine 1+ (Neg); Source, Urine Clean Catch; Urobilinogen, Urine 1+ (Normal)
== END 2021-11-09 16:10 | disposition home or self-care (01) ==
LOC: ER 10:42
PROVIDERS: Physician Assistant
DX: K57.32 Diverticulitis of large intestine without perforation or abscess without bleeding (principal); I10 Essential (primary) hypertension; Z86.718 Personal history of other venous thrombosis and embolism; Z88.6 Allergy status to analgesic agent; Z88.8 Allergy status to other drugs, medicaments and biological substances; Z79.899 Other long term (current) drug therapy
CPT/HCPCS: 80053; 83690; 85025; 96365; 96366; 96375; 96376; 99283-25; J1170; J2405; J2543; J7030

== ENCOUNTER 2022-10-04 22:49 | Inpatient (IN) | payer OTHER ==
[~2022-10-04] VITALS: Ht 165.1 cm; Wt 88.5 kg
[~2022-10-04 22:49] MED LIST changes: +HYDR1TAB94 PO
[2022-10-04 23:59] LABS: BASOPHILS ABSOLUTE AUTO 0.03 K/mm3 (0.00-0.23); BASOPHILS PERCENT AUTO 0 % (0-2); EOSINOPHILS PERCENT AUTO 0 % (0-6); Hematocrit 42.9 % (33.0-51.0); Hemoglobin 14.6 g/dL (11.5-16.0); IMMATURE GRAN ABSOLUTE AUTO 0.06 K/mm3 (0.00-0.10); IMMATURE GRAN PERCENT AUTO 1 % (0-1); LYMPHOCYTES ABSOLUTE AUTO 1.25 K/mm3 (0.84-5.20); LYMPHOCYTES PERCENT AUTO 11 % (21-46); MONOCYTES ABSOLUTE AUTO 0.37 K/mm3 (0.16-1.47); MONOCYTES PERCENT AUTO 3 % (4-13); Mean Corpuscular HGB 28.5 pg (26.0-34.0); Mean Corpuscular Volume 84 fL (80-100); Mean Platelet Volume 12.9 fL (9.1-12.4); NEUTROPHILS ABSOLUTE AUTO 10.14 K/mm3 (1.96-9.15); NEUTROPHILS PERCENT AUTO 86 % (41-73); Platelet Count 176 K/mm3 (150-400); RDW Standard Deviation 42.4 fL (35.1-46.3); Red Blood Cell Count 5.13 M/mm3 (3.80-5.20); White Blood Cell Count 11.85 K/mm3 (4.00-11.30)
[2022-10-05 00:07] LABS: Albumin, Blood 4.3 g/dL (3.4-5.0); Bilirubin, Total 0.8 mg/dL (0.1-1.0); Bun/Creatinine Ratio 24.4 (12.0-20.0); Calcium, Blood 10.6 mg/dL (8.5-10.1); Creatinine, Blood 0.78 mg/dL (0.40-1.00); Globulin, Blood 4.5 g/dL (2.2-4.0); Potassium, Blood 3.6 mmol/L (3.5-5.5); Total Protein, Blood 8.8 g/dL (6.4-8.2)
[2022-10-05 04:35] LABS: BASOPHILS PERCENT AUTO 0 % (0-2); EOSINOPHILS PERCENT AUTO 0 % (0-6); Hematocrit 40.5 % (33.0-51.0); Hemoglobin 13.5 g/dL (11.5-16.0); IMMATURE GRAN ABSOLUTE AUTO 0.02 K/mm3 (0.00-0.10); IMMATURE GRAN PERCENT AUTO 0 % (0-1); LYMPHOCYTES ABSOLUTE AUTO 0.69 K/mm3 (0.84-5.20); LYMPHOCYTES PERCENT AUTO 9 % (21-46); MONOCYTES ABSOLUTE AUTO 0.27 K/mm3 (0.16-1.47); MONOCYTES PERCENT AUTO 3 % (4-13); Mean Corpuscular HGB 28.1 pg (26.0-34.0); Mean Corpuscular HGB Conc 33.3 g/dL (31.5-36.5); Mean Corpuscular Volume 84 fL (80-100); Mean Platelet Volume 12.9 fL (9.1-12.4); NEUTROPHILS ABSOLUTE AUTO 7.15 K/mm3 (1.96-9.15); NEUTROPHILS PERCENT AUTO 88 % (41-73); Platelet Count 119 K/mm3 (150-400); RDW Coefficient Variation 13.9 % (11.7-14.2); RDW Standard Deviation 42.2 fL (35.1-46.3); Red Blood Cell Count 4.81 M/mm3 (3.80-5.20); White Blood Cell Count 8.13 K/mm3 (4.00-11.30)
[2022-10-05 05:03] LABS: Bun/Creatinine Ratio 25.3 (12.0-20.0); Calcium, Blood 9.4 mg/dL (8.5-10.1); Creatinine, Blood 0.63 mg/dL (0.40-1.00); Globulin, Blood 4.1 g/dL (2.2-4.0); Potassium, Blood 4.1 mmol/L (3.5-5.5); Total Protein, Blood 8.1 g/dL (6.4-8.2)
[2022-10-05 06:06] LABS: Source, Urine Clean Catch
[2022-10-05 06:09] LABS: Appearance, Urine Clear (Clear); Bilirubin, Urine Neg (Neg); Blood, Urine Neg (Neg); Color, Urine Yellow (P-Yellow); Glucose Qualitative, Urine Neg (Neg); Ketones, Urine 4+ (Neg); Leukocyte Esterase, Urine Neg (Neg); Nitrite, Urine Neg (Neg); Protein, Urine 1+ (Neg); Specific Gravity, Urine 1.015 (1.003-1.022); Urobilinogen, Urine NORM (Normal); pH, Urine 6.5 (5.0-8.0)
[2022-10-05] MEDS ORDERED: STELARA90 MG/1 ML SQ ×2 (06:15)
[2022-10-05] MEDS ORDERED: MONDOXYNE NL100 MG PO (06:17)
[2022-10-05] MEDS ORDERED: BISA10S PR (12:53)
[2022-10-05] MEDS ORDERED: DOCU100 PO ×2 (12:53)
--- NOTE | 2022-10-05 13:00 | NUR ---
1149 PATIENT TO FLOOR, PATIENT REPORTED HAVING A LARGE BM IN ER TWO HOURS BEFORE THE TRANSFER, RESOLVED PAIN/NAUSEA, REPORTED TO DR AGUIRRE, DR WATTERS, AND CHARGE NURSE, PATIENT BEING DISCHARGED HOME
--- NOTE | 2022-10-05 15:16 | NUR ---
DISCHARGED, PATIENT DISCHARGED AT 1415, SPOUSE AND PATIENT STATED UNDERSTANDING OF DISCHARGE NEEDS AND FOLLOW UPS
[2022-10-06] MEDS ORDERED: Percocet 5-3251 EACH PO (22:20)
[2022-10-06] MEDS ORDERED: PROM25 PO (22:20)
[2022-10-06] MEDS ORDERED: PHENERGAN25 MG PR (22:20)
[2022-10-06] MEDS ORDERED: KLOR-CON 1010 ME9 PO (22:20)
== END 2022-10-05 14:30 | disposition home or self-care (01) | DRG 386 ==
LOC: ER 22:49 → ERHOLD 22:50 → MEDS 10-05 03:38
PROVIDERS: Student in an Organized Health Care Education/Training Program; ADMIT Internal Medicine
DX: K50.912 Crohn's disease, unspecified, with intestinal obstruction (principal); D68.51 Activated protein C resistance; M32.9 Systemic lupus erythematosus, unspecified; M06.9 Rheumatoid arthritis, unspecified; M79.7 Fibromyalgia; D69.6 Thrombocytopenia, unspecified; K75.81 Nonalcoholic steatohepatitis (NASH); Z86.718 Personal history of other venous thrombosis and embolism; Z90.49 Acquired absence of other specified parts of digestive tract; Z90.710 Acquired absence of both cervix and uterus; Z98.890 Other specified postprocedural states; Z98.891 History of uterine scar from previous surgery; Z88.8 Allergy status to other drugs, medicaments and biological substances; Z91.011 Allergy to milk products; Z79.01 Long term (current) use of anticoagulants; Z79.899 Other long term (current) drug therapy
CPT/HCPCS: 36415; 71046; 74177; 80053; 81025; 83690; 83880; 84484; 85025; 93005; 93010; 96361; 96372-59; 96374; 96375; 96376; 99285-25; J1650; J2270; J2405; J2550; J2765; J2930; J3010; J7030; Q9967

== ENCOUNTER 2022-10-06 18:45 | Emergency (ER) | payer OTHER ==
[~2022-10-06] VITALS: Ht 160 cm; Wt 61.2 kg
[~2022-10-06 18:45] MED LIST changes: +BISA10S PR; +DOCU100 PO; +MONDOXYNE NL100 MG PO
[2022-10-06 21:03] LABS: BASOPHILS ABSOLUTE AUTO 0.01 K/mm3 (0.00-0.23); BASOPHILS PERCENT AUTO 0 % (0-2); EOSINOPHILS PERCENT AUTO 0 % (0-6); Hemoglobin 13.3 g/dL (11.5-16.0); IMMATURE GRAN ABSOLUTE AUTO 0.03 K/mm3 (0.00-0.10); IMMATURE GRAN PERCENT AUTO 0 % (0-1); LYMPHOCYTES PERCENT AUTO 13 % (21-46); MONOCYTES PERCENT AUTO 11 % (4-13); Mean Corpuscular HGB 28.2 pg (26.0-34.0); Mean Corpuscular Volume 81 fL (80-100); Mean Platelet Volume 13.2 fL (9.1-12.4); NEUTROPHILS ABSOLUTE AUTO 7.26 K/mm3 (1.96-9.15); NEUTROPHILS PERCENT AUTO 77 % (41-73); Platelet Count 147 K/mm3 (150-400); RDW Coefficient Variation 13.9 % (11.7-14.2); RDW Standard Deviation 40.1 fL (35.1-46.3); Red Blood Cell Count 4.71 M/mm3 (3.80-5.20)
[2022-10-06 21:21] LABS: Albumin, Blood 4.1 g/dL (3.4-5.0); Albumin/Globulin Ratio 1.1 (0.8-1.8); Bilirubin, Total 0.7 mg/dL (0.1-1.0); Bun/Creatinine Ratio 17.7 (12.0-20.0); Calcium, Blood 9.7 mg/dL (8.5-10.1); Creatinine, Blood 0.79 mg/dL (0.40-1.00); Globulin, Blood 3.7 g/dL (2.2-4.0); Potassium, Blood 2.8 mmol/L (3.5-5.5); Total Protein, Blood 7.8 g/dL (6.4-8.2)
[2022-10-06] MEDS ORDERED: PHENERGAN25 MG PR (22:20)
[2022-10-06] MEDS ORDERED: Percocet 5-3251 EACH PO (22:20)
[2022-10-06] MEDS ORDERED: KLOR-CON 1010 ME9 PO (22:20)
[2022-10-06] MEDS ORDERED: PROM25 PO (22:20)
== END 2022-10-06 23:16 | disposition home or self-care (01) ==
LOC: ER 18:45
PROVIDERS: Emergency Medicine
DX: K52.9 Noninfective gastroenteritis and colitis, unspecified (principal); E87.6 Hypokalemia; Z88.8 Allergy status to other drugs, medicaments and biological substances; Z88.6 Allergy status to analgesic agent; Z91.011 Allergy to milk products; Z79.899 Other long term (current) drug therapy; Z79.01 Long term (current) use of anticoagulants
CPT/HCPCS: 36415; 74018; 80053; 83690; 85025; 93005; 93010; A9270; J1170; J1790; J7120